=== PATIENT | male | born 1965 | race Caucasian/White ===

== ENCOUNTER 2018-10-29 07:09 | Day surgery (SDC) | payer BC ==
[~2018-10-29 07:09] MED LIST: FENTAnyl 50 MCG/ML VIAL; MIDAZOLAM 1 MG/ML 2 ML INJ
[2018-10-29] MEDS: IOHEXOL 300MG/ML 30 ML BTL (09:48)
[2018-10-29] MEDS: TRIAMCINOLONE ACET 40 MG/ML INJ (09:48)
[2018-10-29] MEDS: LIDOCAINE 2% (MDV) 20 ML INJ (09:48)
== END 2018-10-29 10:57 | disposition home or self-care (01) ==
LOC: SDS 07:09
DX: M54.12 Radiculopathy, cervical region (principal)
CPT/HCPCS: 62320; 72040; 93005

== ENCOUNTER 2019-03-15 11:35 | Day surgery (SDC) | payer BC ==
[2019-03-15] MEDS ORDERED: ALBUTEROL 0.083% (NEB) 2.5 MG/3 ML AMP HHN (13:30)
[2019-03-15] MEDS ORDERED: TRIMETHOBENZAMIDE 100 MG/ML VIAL IM (13:30)
[2019-03-15] MEDS ORDERED: FENTAnyl 50 MCG/ML VIAL IV ×3 (13:30)
[2019-03-15] MEDS ORDERED: MIDAZOLAM 1 MG/ML 2 ML INJ IV (13:30)
[2019-03-15] MEDS ORDERED: IPRATROPIUM (NEB) 0.5 MG/2.5 ML AMP HHN (13:30)
[2019-03-15] MEDS ORDERED: HYDROmorphONE 1 MG/5 ML IV SYRINGE IV ×3 (13:30)
[2019-03-15] MEDS ORDERED: DIPHENHYDRAMINE 50 MG INJ IV (13:30)
[2019-03-15] MEDS ORDERED: ONDANSETRON 4 MG INJ IV (13:30)
[2019-03-15] MEDS ORDERED: OXYCODONE/ACETAMINOPHEN (5/325) TAB PO ×2 (13:30)
[2019-03-15] MEDS ORDERED: MEPERIDINE 25 MG INJ IV (13:30)
[2019-03-15] MEDS ORDERED: LABETALOL HCL 20MG INJ IV (13:30)
[2019-03-15] MEDS ORDERED: hydrALAzine 20 MG INJ IV (13:30)
[2019-03-15] MEDS ORDERED: EPHEDrine 25 MG/5 ML SYG IV (13:30)
[2019-03-15] MEDS ORDERED: FENTAnyl 50 MCG/ML VIAL (13:40)
[2019-03-15] MEDS ORDERED: MIDAZOLAM 1 MG/ML 2 ML INJ (13:42)
[2019-03-15] MEDS: LIDOCAINE 1% (MPF) 30 ML INJ (13:53)
[2019-03-15] MEDS: BETAMET NA PHOS/AC(6 MG/ML) 5ML INJ (13:53)
[2019-03-15] MEDS: IOHEXOL 300MG/ML 30 ML BTL (13:54)
== END 2019-03-15 15:00 | disposition home or self-care (01) ==
LOC: SDS 11:35
DX: M50.123 Cervical disc disorder at C6-C7 level with radiculopathy (principal)
CPT/HCPCS: 62320; 72040